=== PATIENT | female | born 1985 | race Two or more races ===

== ENCOUNTER 2017-05-26 12:01 | Emergency (ER) | payer SELFPAY ==
[~2017-05-26] VITALS: Ht 165.1 cm; Wt 61.2 kg
[2017-05-26 12:12] VITALS: BP 103/58
[2017-05-26] MEDS ORDERED: KETOROLAC TROMETHAMINE INJ 30 MG/ML VIAL ONE (12:56)
[2017-05-26] MEDS ORDERED: KETOROLAC TROMETHAMINE INJ 60 MG/2 ML VIAL IM ONE (13:00)
== END 2017-05-26 13:07 | disposition home or self-care (01) ==
LOC: ER 12:03
DX: K05.30 Chronic periodontitis, unspecified (principal); K02.9 Dental caries, unspecified; Z88.0 Allergy status to penicillin
CPT/HCPCS: 96372; 99283; A4606; J1885; Z7610

== ENCOUNTER → 2021-08-06 | Emergency (ER) | payer MEDICAID ==
[~2021-08-06] VITALS: Ht 157.5 cm; Wt 66.7 kg
[~2021-08-06] MED LIST: LORAZEPAM 1 MG TABLET ONE; LORAZEPAM 1 MG TABLET PO ONE
--- NOTE | 2021-08-06 15:19 | NUR ---
CALLED PT IN [place], NO ANSWER
--- NOTE | 2021-08-06 16:30 | NUR ---
Patient discharged to home in stable condition. Written and verbal after care instructions given. Patient verbalizes understanding of instruction.
[2021-08-06 16:37] VITALS: BP 99/76
== END | disposition home or self-care (01) ==
LOC: ER 15:05
DX: F41.9 Anxiety disorder, unspecified (principal); R07.89 Other chest pain; Z88.0 Allergy status to penicillin
CPT/HCPCS: 71045-TC

== ENCOUNTER 2021-10-16 03:47 | Emergency (ER) | payer MEDICAID, OTHER ==
[~2021-10-16] VITALS: Ht 165.1 cm; Wt 66.2 kg
[2021-10-16 03:50] VITALS: BP 135/90
[2021-10-16] MEDS ORDERED: MAG HYDROX/AL HYDROX/SIMETH 30 ML UDC PO ONE (04:00)
[2021-10-16] MEDS ORDERED: LIDOCAINE VISCOUS 2% UD 15 ML UDC ONE (04:00)
[2021-10-16] MEDS ORDERED: LIDOCAINE VISCOUS 2% UD 15 ML UDC MM ONE (04:00)
[2021-10-16] MEDS ORDERED: MAG HYDROX/AL HYDROX/SIMETH 30 ML UDC ONE (04:00)
== END 2021-10-16 04:11 | disposition home or self-care (01) ==
LOC: ER 03:50
DX: R10.13 Epigastric pain (principal); Z88.0 Allergy status to penicillin

== ENCOUNTER 2021-10-26 12:22 | Emergency (ER) | payer OTHER ==
[~2021-10-26] VITALS: Ht 165.1 cm; Wt 65.8 kg
[2021-10-26 12:31] VITALS: BP 109/71
--- NOTE | 2021-10-26 12:36 | NUR ---
BIBS FOR C/O MOUTH PAIN 02/17. THE PATIENT HAD ROOT CANAL DONE YESTERDAY. DENIES CHILLS/FEVER. WILL CONTINUE TO MONITOR THE PATIENT.
--- NOTE | 2021-10-26 12:40 | NUR ---
DR. GLEASON CURRENTLY W/ THE PATIENT.
[2021-10-26] MEDS ORDERED: HYDR-3980 PO (12:48)
--- NOTE | 2021-10-26 12:53 | NUR ---
Patient discharged to home in stable condition. Written and verbal after care instructions given. Patient verbalizes understanding of instruction.
== END 2021-10-26 12:54 | disposition home or self-care (01) ==
LOC: ER 12:25
DX: K08.89 Other specified disorders of teeth and supporting structures (principal); Z88.0 Allergy status to penicillin; Z79.899 Other long term (current) drug therapy

== ENCOUNTER 2022-07-13 04:58 | Emergency (ER) | payer OTHER ==
[~2022-07-13 04:58] MED LIST changes: +HYDR-3980 PO; -LORAZEPAM 1 MG TABLET ONE; -LORAZEPAM 1 MG TABLET PO ONE
--- NOTE | 2022-07-13 05:25 | NUR ---
called to triage no answer
--- NOTE | 2022-07-13 05:30 | NUR ---
called to triage, pt not in waiting room
== END 2022-07-13 06:19 | disposition left against medical advice (07) ==
LOC: ER 05:06
DX: Z53.21 Procedure and treatment not carried out due to patient leaving prior to being seen by health care provider (principal)

== ENCOUNTER 2022-08-11 05:17 | Emergency (ER) | payer OTHER ==
[~2022-08-11] VITALS: Ht 165.1 cm; Wt 70.3 kg
--- NOTE | 2022-08-11 06:25 | NUR ---
PT CAME FROM HOME, C/O RT 5TH TOE PAIN, BRUISE AND SWELLING DUE TO DROPPED SOMETHING HEAVY ON LAST NIGHT.
[2022-08-11] MEDS ORDERED: IBUPROFEN 600 MG TABLET ONE (06:34)
[2022-08-11] MEDS: IBUPROFEN 600 MG TABLET PO ONE ×2 (06:35→06:40)
--- NOTE | 2022-08-11 06:40 | NUR ---
XR AT BEDSIDE
[2022-08-11 07:09] VITALS: BP 113/60
--- NOTE | 2022-08-11 07:09 | NUR ---
Patient discharged to home in stable condition. Written and verbal after care instructions given. Patient verbalizes understanding of instruction.
== END 2022-08-11 07:09 | disposition home or self-care (01) ==
LOC: ER 05:19
DX: S90.121A Contusion of right lesser toe(s) without damage to nail, initial encounter (principal); Z88.0 Allergy status to penicillin; W04.XXXA Fall while being carried or supported by other persons, initial encounter; Y93.89 Activity, other specified; Y92.89 Other specified places as the place of occurrence of the external cause; Y99.8 Other external cause status
CPT/HCPCS: 73660-TC

== ENCOUNTER 2022-09-04 09:16 | Emergency (ER) | payer OTHER ==
[~2022-09-04] VITALS: Ht 165.1 cm; Wt 67.1 kg
--- NOTE | 2022-09-04 09:34 | NUR ---
Urine sample collected and sent to lab
--- NOTE | 2022-09-04 09:39 | NUR ---
Pt resting in stretcher. Pt c/o mid back raegan. Pt pending MD Patel at this time
[2022-09-04] MEDS ORDERED: IV NS 0.9% 1,000 ML BAG IV ONE (10:00)
[2022-09-04] MEDS ORDERED: ONDANSETRON HCL/PF 4 MG/2 ML VIAL IVP ONE (10:00)
[2022-09-04] MEDS ORDERED: KETOROLAC TROMETHAMINE INJ 30 MG/ML VIAL IV ONE (10:00)
--- NOTE | 2022-09-04 10:04 | NUR ---
LAC 20 established, blood work collected and sent to lab. Line flushed. Pt tolerated well
[2022-09-04 10:10] LABS: BILIRUBIN,URINE NEGATIVE (NEGATIVE); COLOR,URINE YELLOW (YELLOW); LEUKOCYTE ESTERASE ,URINE NEGATIVE (NEGATIVE); NITRITE, URINE NEGATIVE (NEGATIVE); PH,URINE 6.5 (5.0-8.0); PROTEIN,URINE NEGATIVE (NEGATIVE); UGLUCOSE NEGATIVE (NEGATIVE); UROBILINOGEN,URINE 0.2 EU/dL (0.2)
[2022-09-04 10:11] LABS: BASOPHILS # (AUTO) 0.1 K/uL (0.0-0.2); BASOPHILS % (AUTO) 0.8 % (0.0-2.0); EOSINOPHILS % (AUTO) 3.5 % (0.0-6.0); HEMATOCRIT 39 % (33-45); LYMPHOCYTES # (AUTO) 3.4 K/uL (0.8-4.8); LYMPHOCYTES % (AUTO) 42.6 % (20.0-44.0); MEAN CORPUSCULAR HGB CONC 33 g/dl (31.0-36.0); MEAN CORPUSCULAR VOLUME 81 fL (82-100); MONOCYTES # (AUTO) 0.7 K/uL (0.1-1.30); MONOCYTES % (AUTO) 8.7 % (2.0-12.0); NEUTROPHILS # (AUTO) 3.6 K/uL (1.8-8.9); NEUTROPHILS % (AUTO) 44.4 % (43.0-81.0); PLATELET COUNT (AUTO) 223 K/uL (150-450); RED BLOOD CELL COUNT(AUTO) 4.86 MIL/uL (4.0-5.2); WHITE BLOOD COUNT (AUTO) 8.1 K/uL (4.3-11.0)
[2022-09-04] MEDS ORDERED: KETOROLAC TROMETHAMINE INJ 30 MG/ML VIAL ONE (10:16)
[2022-09-04] MEDS ORDERED: ONDANSETRON HCL/PF 4 MG/2 ML VIAL ONE (10:16)
[2022-09-04 10:22] LABS: CALCIUM, SERUM 9.5 mg/dL (8.5-10.1); CREATININE 0.8 mg/dL (0.6-1.3); POTASSIUM 3.7 mmol/L (3.5-5.1)
[2022-09-04 10:28] LABS: ALBUMIN 3.7 g/dL (3.4-5.0); BILIRUBIN,TOTAL 0.3 mg/dL (0.2-1.0); TOTAL PROTEIN, SERUM 7.7 g/dL (6.4-8.2)
--- NOTE | 2022-09-04 12:37 | NUR ---
Radiology called for CT results, unavailable at this time
--- NOTE | 2022-09-04 13:08 | NUR ---
Patient discharged to home in stable condition. Written and verbal after care instructions given. Patient verbalizes understanding of instruction.IV removed. Catheter intact and site benign. Pressure and 4x4 applied to site. No bleeding noted.
[2022-09-04 13:09] VITALS: BP 122/68
== END 2022-09-04 13:10 | disposition home or self-care (01) ==
LOC: ER 09:26
DX: R10.32 Left lower quadrant pain (principal); Z79.899 Other long term (current) drug therapy; Z88.0 Allergy status to penicillin
CPT/HCPCS: 99285; 74176; 96374; 96361; 96375; 85025; 80048; 83690; 80076; 84703; 81003; 36415; J1885; J2405; J7030; A4223

== ENCOUNTER 2023-01-13 00:37 | Emergency (ER) | payer OTHER ==
[~2023-01-13] VITALS: Ht 165.1 cm; Wt 68.0 kg
[2023-01-13 00:50] VITALS: BP 131/78; TEMP 98.5
[2023-01-13 00:51] VITALS: O2SAT 100
== END 2023-01-13 00:50 | disposition left against medical advice (07) ==
LOC: ER 00:37
DX: L73.2 Hidradenitis suppurativa (principal); Z79.899 Other long term (current) drug therapy; Z88.0 Allergy status to penicillin